=== PATIENT | female | born 1995 | race Caucasian/White ===

== ENCOUNTER 2018-05-24 16:58 | Emergency (ER) | payer SELFPAY ==
[~2018-05-24] VITALS: Ht 152.4 cm; Wt 32.0 kg
[2018-05-24] MEDS ORDERED: SODIUM CHLORIDE 0.9% 1,000 ML IV ONE (17:34)
[2018-05-24] MEDS ORDERED: ONDANSETRON HCL 4MG/2ML INJ IV STA (17:34)
[2018-05-24] MEDS ORDERED: CLONIDINE 0.1MG TABLET PO ONE (17:45)
[2018-05-24 17:55] LABS: BASOPHILS % 0.2 % (0.0-2.0); EOSINOPHILS % 0.3 % (0.0-5.0); HEMATOCRIT. 42.1 % (36.0-48.0); LYMPHOCYTES % 12.1 % (20.0-50.0); MEAN CORPUSCULAR HEMOGLOBIN 29.8 pg (28.0-32.0); MEAN CORPUSCULAR VOLUME 89.6 fL (81.0-99.0); MEAN PLATELET VOLUME 8.3 fl (7.4-10.4); MONOCYTES % 4.7 % (2.0-8.0); NEUTROPHILS % 82.7 % (40.0-76.0); PLATELET 226 x1000/uL (130-400); RED CELL DISTRIBUTION WIDTH 14.7 % (11.6-14.6)
[2018-05-24 18:01] LABS: CHLORIDE 108 mEq/L (98-107)
[2018-05-24 18:02] LABS: PROTHROMBIN TIME 10.3 sec (9.1-11.1)
[2018-05-24 18:10] LABS: HCG SCREEN NEGATIVE
[2018-05-24 18:36] LABS: CLARITY URINE CLOUDY (CLEAR); COLOR URINE YELLOW (YELLOW); KETONES URINE NEGATIVE (NEGATIVE); LEUKOCYTE ESTERASE URINE 2+ (NEGATIVE); NITRITE URINE NEGATIVE (NEGATIVE); OCCULT BLOOD URINE NEGATIVE (NEGATIVE); PH URINE 8.5 (4.5-8.0); PROTEIN URINE NEGATIVE (NEGATIVE); SPECIFIC GRAVITY URINE 1.008 (1.005-1.030); UROBILINOGEN URINE 0.2 E.U./dL (0.2-1.0)
[2018-05-24] MEDS ORDERED: LORAZEPAM 2MG/ML CPJ IV ONE (18:45)
[2018-05-25 05:32] VITALS: BP 115/48
== END 2018-05-25 06:35 | disposition home or self-care (01) ==
LOC: ER 16:58
DX: F11.23 Opioid dependence with withdrawal (principal); F17.200 Nicotine dependence, unspecified, uncomplicated; R42 Dizziness and giddiness; R53.1 Weakness
CPT/HCPCS: 36415; 80053; 81003; 81025; 83605; 84703; 85025; 85610; 96361; 96374; 96375; 99285; J2060; J2405; J7030